=== PATIENT | male | born 1990 | race Caucasian/White ===

== ENCOUNTER 2017-12-25 23:51 | Emergency (ER) | payer OTHER ==
[2017-12-26 00:12] VITALS: BP 132/83
--- NOTE | 2017-12-26 00:19 | ED Physician Documentation ---
General Adult - HISTORIAN Historian: patient - HPI Stated Complaint: HEAD LAC Chief Complaint: General Adult Onset: hours Timing: still present Severity: mild Further Comments: yes (Pt is a 27 yo prisoner who has a scalp laceration to the top of his head. Pt stood up under a fire alarm box that had a sharp edge and lacerated the scalp at the crown of his head. No LOC or other complaint. Tetanus is utd.) - ROS CONST: no problems EYES/ENT: none CVS/RESP: none GI/: none MS/SKIN/LYMPH: other (scalp laceration) - PAST HX Past History: none Other History: none Allergies/Adverse Reactions: Allergies Allergy/AdvReac Type Severity Reaction Status Date / Time No Known Allergies Allergy Verified 12/26/17 00:12 Home Medications: Ambulatory Orders Medication Instructions Recorded NK [NK] 12/26/17 - SOCIAL HX Smoking History: non-smoker - FAMILY HX Family History: No - VITAL SIGNS Vital Signs: Vital Signs Temp Pulse Resp BP Pulse Ox 98.4 F 84 18 132/83 96 12/25/17 23:51 12/25/17 23:51 12/25/17 23:51 12/25/17 23:51 12/25/17 23:51 - REVIEWED ASSESSMENTS Nursing Assessment Reviewed: Yes Vitals Reviewed: Yes Procedures Wound Location: head Wound Length: 6 cm Wound's Depth, Shape: superficial Wound Explored: clean Irrigated w/ Saline (ccs): 20 Betadine Prep?: Yes Wound Debrided: minimal Wound Repaired With: alfonzo Number of Sutures: 8 (alfonzo) Layer Closure?: No Progress - Progress Progress: Apply topical antibiotic such as Neosporin, Bacitracin, or Triple Antibiotic to stapled area every 12 hours for 5 days. Follow up with primary provider in 7 days for suture removal. General Adult Physical Exam - PHYSICAL EXAM GENERAL APPEARANCE: no distress EENT: eye inspection normal NECK: normal inspection, supple RESPIRATORY: no resp distress, chest non-tender, breath sounds normal CVS: reg rate & rhythm, heart sounds normal BACK: normal inspection SKIN: other (superficial 6 cm scalp laceration, crown of head.) EXTREMITIES: non-tender, normal range of motion, no evidence of injury NEURO: oriented X3, motor nml, sensation nml Discharge Clincal Impression: scalp laceration Referrals: Quintin Watson III, MD [Primary Care Provider] - Condition: Good Disposition: HOME, SELF-CARE Decision to Admit: NO Decision Time: 00:26
[2017-12-26] MEDS: NEOMYCIN/BACITRACIN/POLYMYXINB 1 EACH OINT.PACK TP ONE (00:20)
== END 2017-12-26 00:20 | disposition home or self-care (01) ==
LOC: ED 23:51
DX: S01.01XA Laceration without foreign body of scalp, initial encounter (principal); Y92.149 Unspecified place in prison as the place of occurrence of the external cause
CPT/HCPCS: 12002